=== PATIENT | male | born 1965 | race Caucasian/White ===

== ENCOUNTER 2018-05-12 10:29 | Emergency (ER) | payer SELFPAY | END 2018-05-12 13:00 | disposition home or self-care (01) | LOC: ERS 10:29 | DX: S83.92XA Sprain of unspecified site of left knee, initial encounter (principal); X58.XXXA Exposure to other specified factors, initial encounter | CPT/HCPCS: 99282 ==

== ENCOUNTER 2018-08-06 20:52 | Emergency (ER) | payer SELFPAY ==
[2018-08-06] MEDS ORDERED: Ketorolac Tromethamine 60 MG/2 ML VIAL ONE (21:43)
--- NOTE | 2018-08-06 21:45 | RAD ---
LEFT KNEE FOUR VIEWS: CLINICAL HISTORY: Injury with left knee pain. FINDINGS: Subchondral heterogeneity with slight articular surface irregularity present, involving the medial co mpartment, centered at the central aspect of the medial femoral condyle. There is mild joint capsula r distention. Scattered heterotopic densities about the left knee are seen. There is moderate narro wing of the medial joint compartment. IMPRESSION: 1. Findings consistent with an area of subchondral injury involving the medial compartment. There i s associated collapse of the articular surface, with defect measuring approximately 7 mm in craniocau rkistian dimension. Orthopedic followup and MRI of the left knee may prove useful for continued assessmen t. 2. Mild joint capsular distention. POS: [facility]
== END 2018-08-06 22:05 | disposition home or self-care (01) ==
LOC: ERS 20:52
DX: S83.8X2A Sprain of other specified parts of left knee, initial encounter (principal); F17.220 Nicotine dependence, chewing tobacco, uncomplicated; X58.XXXA Exposure to other specified factors, initial encounter
CPT/HCPCS: 96372; J1885

== ENCOUNTER 2025-05-06 08:50 | Emergency (ER) | payer OTHER | END 2025-05-06 10:47 | disposition home or self-care (01) | LOC: ERS 08:50 | DX: J18.9 Pneumonia, unspecified organism (principal); I10 Essential (primary) hypertension; F17.220 Nicotine dependence, chewing tobacco, uncomplicated | CPT/HCPCS: 71046 ==